=== PATIENT | female | born 1960 | race American Indian/Alaskan Native ===

== ENCOUNTER 2018-04-01 20:32 | Emergency (ER) | payer MEDICAID ==
[2018-04-01] MEDS ORDERED: PEPCID IV ONE (20:59)
[2018-04-01] MEDS ORDERED: SUBLIMAZE IV ONE (20:59)
[2018-04-01] MEDS ORDERED: NACL 0.9% 1000 ML 1,000 ML IV ONE (20:59)
[2018-04-01] MEDS ORDERED: ZOFRAN IV ONE (20:59)
--- NOTE | 2018-04-01 21:00 | Emergency Department Report ---
ED General Adult HPI - General Chief complaint: Chest Pain Stated complaint: CHEST PAIN/PASS OUT Time Seen by Provider: 04/01/18 20:47 Source: patient, RN notes reviewed Mode of arrival: Ambulatory Limitations: No Limitations - History of Present Illness Initial comments: Primary care DrAngie: [facility] Past medical history: Hypertension, high cholesterol, depression, reportedly on medicinal cannabis. This is a 58-year-old female who was not known to this provider previously. Patient presents to the ER with a complaint of epigastric pain, chest pain, episodes of nausea and vomiting, and subsequent syncope. Patient denies headache, neck pain. Denies extremity weakness, numbness. Her chest pain is intermittent, radiates down the left arm, and does not have exacerbating or relieving factors. There is chronic back pain but patient does not have new back pain. Patient denies hematemesis or bright red blood per rectum. Patient denies DVT, pulmonary embolus risk factors. -: Sudden Location: chest Radiation: extremity Quality: aching Consistency: intermittent Improves with: none Worsens with: none Associated Symptoms: chest pain, nausea/vomiting, syncope. denies: confusion, cough, diaphoresis, fever/chills, headaches, loss of appetite, malaise, rash, seizure, shortness of breath, weakness - Related Data Home Medications Medication Instructions Recorded Confirmed Last Taken Benztropine [Cogentin] 2.5 mg PO QHS 09/14/13 09/14/13 Unknown Citalopram [Celexa] 20 mg PO QAM 09/14/13 09/14/13 Unknown Quetiapine Fumarate [Seroquel XR] 200 mg PO DAILY 09/14/13 09/14/13 Unknown Sertraline [Zoloft] 50 mg PO DAILY 09/14/13 09/14/13 Unknown Previous Rx's Medication Instructions Recorded Last Taken Type Ondansetron [Zofran Odt] 4 mg PO Q4H PRN #10 tab.rapdis 09/14/13 Unknown Rx amLODIPine [Norvasc] 5 mg PO DAILY #30 tab 09/14/13 Unknown Rx Cephalexin [Keflex] 500 mg PO BID #20 capsule 12/15/13 Unknown Rx EPINEPHrine (NF) [Epipen (Nf)] 0.3 mg IM ONCE PRN #1 syringekit 12/15/13 Unknown Rx Prednisone [Prednisone 10 mg 10 mg PO .TAPER #1 tab.ds.pk 12/15/13 Unknown Rx (6-Day Pack, 21 Tabs)] Sulfamethoxazole/Trimethoprim 1 each PO BID #20 tablet 12/15/13 Unknown Rx [Bactrim Ds] hydrOXYzine HCL [Atarax] 25 mg PO Q6HR PRN #14 tablet 12/15/13 Unknown Rx Allergies Allergy/AdvReac Type Severity Reaction Status Date / Time peanut Allergy Angioedema Verified 09/14/13 11:07 shellfish derived Allergy Angioedema Verified 09/14/13 11:07 codeine AdvReac Vomiting Verified 09/14/13 11:07 ED Review of Systems ROS: Stated complaint: CHEST PAIN/PASS OUT Other details as noted in HPI Comment: All other systems reviewed and negative ED Past Medical Hx - Past Medical History Previous Medical History?: Yes Hx Hypertension: Yes Hx GERD: Yes Additional medical history: depression, high chol - Surgical History Past Surgical History?: No - Social History Smoking Status: Never Smoker - Medications Home Medications: Home Medications Medication Instructions Recorded Confirmed Last Taken Type Benztropine [Cogentin] 2.5 mg PO QHS 09/14/13 09/14/13 Unknown History Citalopram [Celexa] 20 mg PO QAM 09/14/13 09/14/13 Unknown History Ondansetron [Zofran Odt] 4 mg PO Q4H PRN #10 tab.rapdis 09/14/13 Unknown Rx Quetiapine Fumarate [Seroquel XR] 200 mg PO DAILY 09/14/13 09/14/13 Unknown History Sertraline [Zoloft] 50 mg PO DAILY 09/14/13 09/14/13 Unknown History amLODIPine [Norvasc] 5 mg PO DAILY #30 tab 09/14/13 Unknown Rx Cephalexin [Keflex] 500 mg PO BID #20 capsule 12/15/13 Unknown Rx EPINEPHrine (NF) [Epipen (Nf)] 0.3 mg IM ONCE PRN #1 syringekit 12/15/13 Unknown Rx Prednisone [Prednisone 10 mg 10 mg PO .TAPER #1 tab.ds.pk 12/15/13 Unknown Rx (6-Day Pack, 21 Tabs)] Sulfamethoxazole/Trimethoprim 1 each PO BID #20 tablet 12/15/13 Unknown Rx [Bactrim Ds] hydrOXYzine HCL [Atarax] 25 mg PO Q6HR PRN #14 tablet 12/15/13 Unknown Rx ED Physical Exam - General Limitations: No Limitations General appearance: alert, in no apparent distress - Head Head exam: Present: atraumatic, normocephalic - Eye Eye exam: Present: normal appearance, PERRL, EOMI, other (visual acuity intact to finger counting, color perception, reading at a close distance). Absent: nystagmus - ENT ENT exam: Present: normal exam, normal orophraynx, mucous membranes moist, normal external ear exam - Neck Neck exam: Present: normal inspection, full ROM. Absent: tenderness, meningismus - Respiratory Respiratory exam: Present: normal lung sounds bilaterally. Absent: respiratory distress - Cardiovascular Cardiovascular Exam: Present: regular rate, normal rhythm, normal heart sounds. Absent: systolic murmur, diastolic murmur, rubs, gallop - GI/Abdominal GI/Abdominal exam: Present: soft, normal bowel sounds. Absent: distended, tenderness, guarding, rebound, rigid, pulsatile mass - Extremities Exam Extremities exam: Present: normal inspection, full ROM, normal capillary refill , other (2+ pulses noted in the bilateral upper, lower extremities. Compartments soft. No long bony tenderness. The pelvis is stable.). Absent: tenderness, pedal edema, joint swelling, calf tenderness - Back Exam Back exam: Present: normal inspection, full ROM. Absent: tenderness, CVA tenderness (R), paraspinal tenderness, vertebral tenderness - Neurological Exam Neurological exam: Present: alert, oriented X3, CN II-XII intact, other ( Extraocular movements intact. Tongue midline. No facial droop. Facial sensation intact to light touch in the V1, V2, V3 distribution bilaterally. 5 and 5 strength in 4 extremities.. Sensation is intact to light touch in 4 extremities.). Absent: motor sensory deficit - Psychiatric Psychiatric exam: Present: normal affect, normal mood - Skin Skin exam: Present: warm, dry, intact, normal color. Absent: rash ED Course Vital Signs 04/01/18 04/01/18 04/01/18 20:40 21:55 22:25 Temperature 99.1 F Pulse Rate 78 98 H Respiratory 18 18 12 Rate Blood Pressure 192/100 149/86 O2 Sat by Pulse 99 Oximetry 04/01/18 04/01/18 23:15 23:55 Temperature Pulse Rate 73 Respiratory 12 Rate Blood Pressure 157/94 O2 Sat by Pulse 99 Oximetry - Reevaluation(s) Reevaluation #1: 04/01/18 21:19 Differential diagnosis, including but not limited to: Orthostasis, vagal event, structural cardiac disease, acute coronary syndrome, cannabinoid hyperemesis syndrome, GERD, gastritis, pancreatitis Assessment and plan: 58-year-old female with antecedent nausea and vomiting, chest pain that radiates down the left arm, with syncope. Blood pressure currently in the 160s. She is afebrile with otherwise reassuring vital signs, pleasant, calm and cooperative, and does not appear to be in any acute distress. NIH score of 0 at this time. Patient is clinically sober.Patient is clinically sober at this time. The cervical spine is cleared through nexus and panamanian c spine rule\ CT scan of the brain, chest, abdomen, pelvis pending. Patient will be given IV fluids, nausea medication and pain medication. We will reassess after initial diagnostics have resulted. Reevaluation #2: 04/01/18 23:26 CT scan of the brain is negative for acute disease Reevaluation #3: 04/02/18 00:11 CT scan of the chest was negative for pulmonary embolus, dissection. Stones noted in the gallbladder. CT scan of the abdomen and pelvis is pending. Incidental findings noted in left breast, this can be followed up by the inpatient team and by an outpatient primary care doctor. There is no right upper quadrant pain or tenderness to my examination, therefore I doubt biliary colic at this time. 04/02/18 00:11 Reevaluation #4: 04/02/18 00:17 CT scan of the abdomen and pelvis is negative for acute disease, fibroids noted , gallstones noted without evidence of cholecystitis. Reevaluation #5: 04/02/18 00:18 Dr Velázquez accepts his service. Blood pressure is improved. ED Medical Decision Making - Lab Data Result diagrams: 04/01/18 21:13 04/01/18 21:13 Vital Signs 04/01/18 20:40 Temperature 99.1 F Pulse Rate 78 Respiratory 18 Rate Blood Pressure 192/100 O2 Sat by Pulse 99 Oximetry - EKG Data -: EKG Interpreted by Ut EKG shows normal: sinus rhythm Rate: normal - EKG Data 10/23/18 21:20 Sinus, 84 bpm, left axis deviation, borderline left anterior fascicular block, poor R-wave progression, T-wave inversions in the septal leads, abnormal EKG, not morphologically consistent with an ST elevation myocardial infarction. Appears grossly unchanged from prior EKG from September 2013. - Radiology Data Radiology results: report reviewed, image reviewed X-ray of the chest was negative for acute disease Critical care attestation.: If time is entered above; I have spent that time in minutes in the direct care of this critically ill patient, excluding procedure time. ED Disposition Clinical Impression: Syncope, Chest pain Disposition: OP ADMIT IP TO THIS HOSP Is pt being admited?: Yes Does the pt Need Aspirin: Yes Condition: Good Instructions: Chest Pain (ED), Syncope (ED) Referrals: PRIMARY CARE, [Primary Care Provider] - 3-5 Days
[2018-04-01 21:24] LABS: Basophils % (Auto) 0.3 % (0.0-1.8); Eosinophils % (Auto) 0.8 % (0.0-4.3); Hematocrit 43.4 % (30.3-42.9); Hemoglobin 14.7 gm/dl (10.1-14.3); Lymphocytes # (Auto) 1.8 K/mm3 (1.2-5.4); Lymphocytes % (Auto) 29.6 % (13.4-35.0); Mean Corpuscular HGB Conc 34 % (30-34); Mean Corpuscular Hemoglobin 31 pg (28-32); Mean Corpuscular Volume 90 fl (79-97); Monocytes # (Auto) 0.4 K/mm3 (0.0-0.8); Monocytes % (Auto) 7.5 % (0.0-7.3); Platelet Count 242 K/mm3 (140-440); Red Blood Count 4.82 M/mm3 (3.65-5.03); Red Cell Distribution Width 13.9 % (13.2-15.2)
[2018-04-01 21:32] LABS: BUN/Creatinine Ratio 15; Blood Urea Nitrogen 9 mg/dL (7-17); Calcium 9.5 mg/dL (8.4-10.2); Hemolysis Index 7
--- NOTE | 2018-04-01 21:38 | XRay Report ---
FINAL REPORT PROCEDURE: XR CHEST 1V AP TECHNIQUE: Chest radiograph anteroposterior view. CPT 45303 HISTORY: cp syncope COMPARISON: No prior studies are available for comparison. FINDINGS: Heart: Normal. Mediastinum/Vessels: Normal. Lungs/Pleural space: Normal. Bony thorax: No acute osseous abnormality. Life support devices: None. IMPRESSION: No acute cardiopulmonary abnormality.
[2018-04-01] MEDS: NITROSTAT SL PRN ×2 (21:55→23:55)
[2018-04-01 22:12] LABS: INR 0.87 (0.87-1.13)
[2018-04-01 22:13] LABS: Partial Thromboplastin Time 30.4 Sec. (24.2-36.6)
--- NOTE | 2018-04-01 23:22 | Cat Scan Report ---
FINAL REPORT PROCEDURE: CT HEAD/BRAIN WO CON TECHNIQUE: Computerized tomography of the head was performed without contrast material. HISTORY: syncope COMPARISON: No prior studies are available for comparison. FINDINGS: Skull and scalp: Normal. Paranasal sinuses: Normal. Ventricles and subarachnoid spaces: Normal. Cerebrum: No evidence of hemorrhage, acute infarction or mass . Cerebellum and brainstem: No evidence of hemorrhage, acute infarction or mass. Vasculature: Normal. Comments: None. IMPRESSION: Normal Examination
[2018-04-01] MEDS ORDERED: REGLAN IV ONE (23:48)
--- NOTE | 2018-04-01 23:57 | Cat Scan Report ---
FINAL REPORT PROCEDURE: CT ANGIO CHEST TECHNIQUE: Computerized tomographic angiography of the chest was performed after the IV injection of iodinated nonionic contrast including image processing. The image data was postprocessed using 2-dimensional multiplanar reformatted (MPR) and 3-dimensional (MIP and/or volume rendered) techniques. HISTORY: syncope, chest pain COMPARISON: No prior studies are available for comparison. FINDINGS: Heart and pericardium: Normal. Thoracic aorta: Normal. Pulmonary vasculature: Normal. Lymph nodes: No enlarged thoracic lymph nodes. Lungs: Normal. Pleural space: No effusion, thickening, or pneumothorax. Musculoskeletal structures: No significant abnormality. Upper abdominal structures: Multiple calculi are noted in the gallbladder filling the entire lumen largest measuring 1.6 centimeters. Left adrenal demonstrates a hypo enhancing nodule measuring 1.2 centimeters. A well-defined soft tissue density lesion measuring 1.7 x 3.3 centimeters is noted involving the medial left breast.. IMPRESSION: No acute pulmonary process No evidence of pulmonary embolism Cholelithiasis Small hypo enhancing nodule involving left adrenal is of nonspecific etiology. It may be further evaluated using pre and post-contrast MRI. Well-defined soft tissue density mass in the medial left breast there is further evaluation including clinical examination and mammography to differentiate a benign lesion from malignancy.
[2018-04-01 23:58] VITALS: BP 157/94
--- NOTE | 2018-04-02 00:14 | Cat Scan Report ---
FINAL REPORT EXAM: CT ABDOMEN PELVIS W CON HISTORY: syncope, abd pain chest pain TECHNIQUE: Routine axial imaging was obtained of the abdomen and pelvis following the intravenous injection of 100 cc of Omnipaque 350. Delayed imaging was obtained through the kidneys ureters and bladder. Sagittal and coronal reconstructions were reviewed. FINDINGS: The lung bases are clear. Pleural fluid is not seen. The gallbladder is distended and contains multiple stones. There are no secondary signs of acute cholecystitis. The liver and biliary tree appear normal. The pancreas, spleen, and adrenal glands appear normal. The kidneys enhance normally. There is no evidence of hydronephrosis. The abdominal aorta and portal vein are widely patent. The IVC is widely patent. The bowel loops are normal in caliber and course. The appendix is not enlarged. There is no evidence of free fluid or adenopathy. In the pelvis the uterus is enlarged and contains several fibroids measure up to 6.1 cm in diameter. The bladder appears normal. The skeletal structures reveal mild arthritic changes lower lumbar spine. IMPRESSION: Gallstones. No secondary signs of acute cholecystitis. Normal appendix. Enlarged uterus containing multiple fibroids. Mild arthritic changes in the lower lumbar spine
[2018-04-02 00:19] LABS: Alanine Aminotransferase 8 units/L (7-56); Albumin 4.5 g/dL (3.9-5)
[2018-04-02] MEDS ORDERED: BABY ASPIRIN PO ONE (00:19)
[2018-04-02 00:20] LABS: Bilirubin,Direct < 0.2 mg/dL (0-0.2)
--- NOTE | 2018-04-02 01:55 | Ultrasound Report ---
FINAL REPORT EXAM: US ABDOMEN LIMITED HISTORY: abd pain TECHNIQUE: Routine imaging was obtained of the right upper outer quadrant. FINDINGS: There is diffuse shadowing from the gallbladder suggesting multiple gallstones. There is no evidence of gallbladder wall thickening. The gallbladder wall thickness is 1 mm. The common bile duct is dilated at 9.9 mm. The liver is normal size and echotexture. The visualized portion of the abdominal aorta is normal caliber measuring 2.1 cm in diameter. The pancreatic head appears normal. The body and tail not well seen because of bowel gas. The right kidney shows no evidence of hydronephrosis. IMPRESSION: Gallstones. The gallbladder is not well seen because of excessive shadowing. Dilated common bile duct at 9.9 mm. A distal common bile duct stone cannot entirely be excluded. No evidence of hydronephrosis.
== END 2018-04-02 04:26 | disposition admitted as inpatient to this hospital (09) ==
LOC: ED 20:32
DX: R07.89 Other chest pain (principal); R11.2 Nausea with vomiting, unspecified; R55 Syncope and collapse; I10 Essential (primary) hypertension; K21.9 Gastro-esophageal reflux disease without esophagitis; F32.9 Major depressive disorder, single episode, unspecified; E78.00 Pure hypercholesterolemia, unspecified; Z79.899 Other long term (current) drug therapy; Z91.013 Allergy to seafood; Z88.4 Allergy status to anesthetic agent; Z91.010 Allergy to peanuts
CPT/HCPCS: 36415; 70450; 71045; 71275; 74177; 76705; 80048; 80074; 82550; 83690; 83735; 84484; 85025; 85610; 85730; 93005; 93010; 96361; 96374; 96375; 99285; J2405; J2765; J3010; J7030; Q9967

== ENCOUNTER 2019-05-25 00:21 | Emergency (ER) | payer MEDICAID ==
[2019-05-25 01:18] LABS: Basophils % (Auto) 0.2 % (0.0-1.8); Eosinophils # (Auto) 0.1 K/mm3 (0.0-0.4); Eosinophils % (Auto) 1.3 % (0.0-4.3); Hematocrit 39.9 % (30.3-42.9); Hemoglobin 13.8 gm/dl (10.1-14.3); Lymphocytes # (Auto) 2.1 K/mm3 (1.2-5.4); Lymphocytes % (Auto) 27.1 % (13.4-35.0); Mean Corpuscular HGB Conc 35 % (30-34); Mean Corpuscular Volume 89 fl (79-97); Monocytes # (Auto) 0.6 K/mm3 (0.0-0.8); Monocytes % (Auto) 7.7 % (0.0-7.3); Platelet Count 278 K/mm3 (140-440); Red Cell Distribution Width 14.1 % (13.2-15.2)
[2019-05-25 01:32] LABS: Alanine Aminotransferase 9 units/L (7-56); Albumin 4.3 g/dL (3.9-5); BUN/Creatinine Ratio 22; Blood Urea Nitrogen 13 mg/dL (7-17); Hemolysis Index 6
[2019-05-25 02:00] LABS: Calcium 9.7 mg/dL (8.4-10.2)
--- NOTE | 2019-05-25 02:23 | Emergency Department Report ---
ED General Adult HPI - General Chief complaint: Abdominal Pain Stated complaint: L SIDE PAIN Time Seen by Provider: 05/25/19 01:23 Source: patient Mode of arrival: Ambulatory Limitations: No Limitations - History of Present Illness Initial comments: Patient is a 59-year-old female presents emergency room with complaints of chronic left lower abdominal discomfort for 3 months. She states initially she was having nausea and vomiting but that has since resolved and she has not had nausea and vomiting in "awhile." She states that she went to [facility] a month ago and was evaluated in the emergency room and states that she also had a pelvic ultrasound which she states was normal. She denies any diarrhea, constipation, fever, urinary symptoms, vaginal discharge, vaginal complaints. She states that she has past medical history of hypertension and depression. She states that she went through menopause. She states that she takes amlodipine for her blood pressure but has not taken in 2 days due to her forgetting per patient. Severity scale (0 -10): 6 - Related Data Home Medications Medication Instructions Recorded Confirmed Last Taken Benztropine [Cogentin] 2.5 mg PO QHS 09/14/13 09/14/13 Unknown Citalopram [Celexa] 20 mg PO QAM 09/14/13 09/14/13 Unknown Quetiapine Fumarate [Seroquel XR] 200 mg PO DAILY 09/14/13 09/14/13 Unknown Sertraline [Zoloft] 50 mg PO DAILY 09/14/13 09/14/13 Unknown Previous Rx's Medication Instructions Recorded Last Taken Type Ondansetron [Zofran Odt] 4 mg PO Q4H PRN #10 tab.rapdis 09/14/13 Unknown Rx amLODIPine [Norvasc] 5 mg PO DAILY #30 tab 09/14/13 Unknown Rx Cephalexin [Keflex] 500 mg PO BID #20 capsule 12/15/13 Unknown Rx EPINEPHrine (NF) [Epipen (Nf)] 0.3 mg IM ONCE PRN #1 syringekit 12/15/13 Unknown Rx Prednisone [Prednisone 10 mg 10 mg PO .TAPER #1 tab.ds.pk 12/15/13 Unknown Rx (6-Day Pack, 21 Tabs)] Sulfamethoxazole/Trimethoprim 1 each PO BID #20 tablet 12/15/13 Unknown Rx [Bactrim Ds] hydrOXYzine HCL [Atarax] 25 mg PO Q6HR PRN #14 tablet 12/15/13 Unknown Rx Acetaminophen [Acetaminophen TAB] 500 mg PO Q6HR PRN #12 tablet 05/20/18 Unknown Rx Cyclobenzaprine [Flexeril] 10 mg PO TID PRN #12 tablet 05/20/18 Unknown Rx Acetaminophen [Tylenol Arthritis] 650 mg PO Q6HR PRN #30 tablet.er 05/24/18 Unknown Rx Benzonatate [Tessalon Perles] 100 mg PO Q8HR PRN #30 capsule 05/24/18 Unknown Rx Ibuprofen [Motrin] 600 mg PO Q8H PRN #30 tablet 05/24/18 Unknown Rx Ondansetron [Zofran Odt] 4 mg PO Q8HR PRN #20 tab.rapdis 05/24/18 Unknown Rx Ciprofloxacin HCl [Ciprofloxacin 500 mg PO Q12HR 10 Days #20 tab 06/14/18 Unknown Rx TAB] Phenazopyridine [Pyridium] 100 mg PO TID PRN 3 Days #9 tab 06/14/18 Unknown Rx Cyclobenzaprine [Flexeril] 10 mg PO QHS PRN #10 tablet 05/25/19 Unknown Rx Ondansetron [Zofran Odt] 4 mg PO Q8HR PRN #10 tab.rapdis 05/25/19 Unknown Rx Allergies Allergy/AdvReac Type Severity Reaction Status Date / Time peanut Allergy Angioedema Verified 09/14/13 11:07 shellfish derived Allergy Angioedema Verified 09/14/13 11:07 codeine AdvReac Vomiting Verified 09/14/13 11:07 ED Review of Systems ROS: Stated complaint: L SIDE PAIN Other details as noted in HPI Comment: All other systems reviewed and negative ED Past Medical Hx - Past Medical History Previous Medical History?: Yes Hx Hypertension: Yes Hx GERD: Yes Hx Psychiatric Treatment: Yes (Hx of multiple suicide attempts) Additional medical history: depression, high chol - Surgical History Past Surgical History?: No - Social History Smoking Status: Current Every Day Smoker Substance Use Type: None - Medications Home Medications: Home Medications Medication Instructions Recorded Confirmed Last Taken Type Benztropine [Cogentin] 2.5 mg PO QHS 09/14/13 09/14/13 Unknown History Citalopram [Celexa] 20 mg PO QAM 09/14/13 09/14/13 Unknown History Ondansetron [Zofran Odt] 4 mg PO Q4H PRN #10 tab.rapdis 09/14/13 Unknown Rx Quetiapine Fumarate [Seroquel XR] 200 mg PO DAILY 09/14/13 09/14/13 Unknown History Sertraline [Zoloft] 50 mg PO DAILY 09/14/13 09/14/13 Unknown History amLODIPine [Norvasc] 5 mg PO DAILY #30 tab 09/14/13 Unknown Rx Cephalexin [Keflex] 500 mg PO BID #20 capsule 12/15/13 Unknown Rx EPINEPHrine (NF) [Epipen (Nf)] 0.3 mg IM ONCE PRN #1 syringekit 12/15/13 Unknown Rx Prednisone [Prednisone 10 mg 10 mg PO .TAPER #1 tab.ds.pk 12/15/13 Unknown Rx (6-Day Pack, 21 Tabs)] Sulfamethoxazole/Trimethoprim 1 each PO BID #20 tablet 12/15/13 Unknown Rx [Bactrim Ds] hydrOXYzine HCL [Atarax] 25 mg PO Q6HR PRN #14 tablet 12/15/13 Unknown Rx Acetaminophen [Acetaminophen TAB] 500 mg PO Q6HR PRN #12 tablet 05/20/18 Unknown Rx Cyclobenzaprine [Flexeril] 10 mg PO TID PRN #12 tablet 05/20/18 Unknown Rx Acetaminophen [Tylenol Arthritis] 650 mg PO Q6HR PRN #30 tablet.er 05/24/18 Unknown Rx Benzonatate [Tessalon Perles] 100 mg PO Q8HR PRN #30 capsule 05/24/18 Unknown Rx Ibuprofen [Motrin] 600 mg PO Q8H PRN #30 tablet 05/24/18 Unknown Rx Ondansetron [Zofran Odt] 4 mg PO Q8HR PRN #20 tab.rapdis 05/24/18 Unknown Rx Ciprofloxacin HCl [Ciprofloxacin 500 mg PO Q12HR 10 Days #20 tab 06/14/18 Unknown Rx TAB] Phenazopyridine [Pyridium] 100 mg PO TID PRN 3 Days #9 tab 06/14/18 Unknown Rx Cyclobenzaprine [Flexeril] 10 mg PO QHS PRN #10 tablet 05/25/19 Unknown Rx Ondansetron [Zofran Odt] 4 mg PO Q8HR PRN #10 tab.rapdis 05/25/19 Unknown Rx ED Physical Exam - General Limitations: No Limitations General appearance: alert, in no apparent distress - Head Head exam: Present: atraumatic, normocephalic - Eye Eye exam: Present: normal appearance - ENT ENT exam: Present: mucous membranes moist - Respiratory Respiratory exam: Present: normal lung sounds bilaterally. Absent: respiratory distress, wheezes, rales, rhonchi, stridor, chest wall tenderness, accessory muscle use, decreased breath sounds, prolonged expiratory - Cardiovascular Cardiovascular Exam: Present: regular rate, normal rhythm, normal heart sounds. Absent: systolic murmur, diastolic murmur, rubs, gallop - GI/Abdominal GI/Abdominal exam: Present: soft, normal bowel sounds. Absent: distended, tenderness, guarding, rebound, rigid - Neurological Exam Neurological exam: Present: alert, oriented X3 - Psychiatric Psychiatric exam: Present: normal affect, normal mood - Skin Skin exam: Present: warm, dry, intact ED Course Vital Signs 05/25/19 00:37 Temperature 98.4 F Pulse Rate 85 Respiratory 18 Rate Blood Pressure 169/100 [Left] O2 Sat by Pulse 98 Oximetry ED Medical Decision Making - Lab Data Result diagrams: 05/25/19 00:56 05/25/19 00:56 - Medical Decision Making Patient is a 59-year-old female presents emergency room with complaints of chronic left lower abdominal discomfort for 3 months. She states initially she was having nausea and vomiting but that has since resolved and she has not had nausea and vomiting in "awhile." She states that she went to [facility] a month ago and was evaluated in the emergency room and states that she also had a pelvic ultrasound which she states was normal. She denies any diarrhea, constipation, fever, urinary symptoms, vaginal discharge, vaginal complaints. She states that she has past medical history of hypertension and depression. She states that she went through menopause. She states that she takes amlodipine for her blood pressure but has not taken in 2 days due to her forgetting per patient. Vitals with elevated blood pressure as patient has not taken her blood pressure medication 2 days. On exam no abdominal tenderness to palpation, no guarding no rebound no rigidity normal bowel sounds. Labs are normal. UA is within normal limits. given that this is chronic in nature and has been occurring for three months and she has already been evaluated with an ultrasound, will refer pt to a GI doctor for further evaluation and management of her chronic pain. pt given prescription for Zofran and Flexeril. Patient states that she is already taking gabapentin and tramadol at home. advised pt to please take medication as prescribed as needed. Do not drive or operate heavy machinery while taking muscle relaxer. Follow up with a primary care doctor in a GI doctor in the next 2-3 days. Return to the emergency room for any new or worsening symptoms. - Differential Diagnosis constipation, muscle strain, UTI, ovarian cyst, fibroids, IBS, IBD Critical care attestation.: If time is entered above; I have spent that time in minutes in the direct care of this critically ill patient, excluding procedure time. ED Disposition Clinical Impression: Chronic abdominal pain Disposition: - TO HOME OR SELFCARE Is pt being admited?: No Does the pt Need Aspirin: No Condition: Stable Instructions: Abdominal Pain (ED) Additional Instructions: Please take medication as prescribed as needed. Do not drive or operate heavy machinery while taking muscle relaxer. Follow up with a primary care doctor in a GI doctor in the next 2-3 days. Return to the emergency room for any new or worsening symptoms. Prescriptions: Cyclobenzaprine [Flexeril] 10 mg PO QHS PRN #10 tablet PRN Reason: Muscle Spasm Ondansetron [Zofran Odt] 4 mg PO Q8HR PRN #10 tab.rapdis PRN Reason: Nausea And Vomiting Referrals: PRIMARY CARE, [Primary Care Provider] - 2-3 Days [facility] [Provider Group] - 2-3 Days Time of Disposition: 02:43 Print Language: CHINESE
[2019-05-25 02:35] LABS: Bilirubin,Urine NEG (Negative); Blood,Urine NEG (Negative); Color,Urine Straw (Yellow); Protein,Urine <15 mg/dL mg/dL (Negative); Urobilinogen,Urine < 2.0 mg/dL (<2.0)
[2019-05-25 04:25] VITALS: BP 174/103
== END 2019-05-25 03:05 | disposition home or self-care (01) ==
LOC: ED 00:21
DX: G89.29 Other chronic pain (principal); R10.32 Left lower quadrant pain; I10 Essential (primary) hypertension; K21.9 Gastro-esophageal reflux disease without esophagitis; F32.9 Major depressive disorder, single episode, unspecified; E78.5 Hyperlipidemia, unspecified
CPT/HCPCS: 36415; 80053; 81001; 83690; 85025; 99283